=== PATIENT | male | born 1970 | race Two or more races ===

== ENCOUNTER 2016-08-14 21:05 | Emergency (ER) | payer SELFPAY ==
[2016-08-14 21:17] VITALS: BP 141/83
--- NOTE | 2016-08-14 23:11 | PHYS DOC ---
Past Medical History Past Medical History: No Pertinent History Past Surgical History: No Surgical History Alcohol Use: Occasionally Drug Use: None Adult General Chief Complaint Chief Complaint: LACERATION/AVULSION HPI HPI Patient is a 46 year old male states that he was working on the roof when he was cut with a piece of sheet metal on the left forearm. He has a laceration noted on his left forearm that is approximately 1 cm in length. Bleeding is currently controlled. Patient states his last tetanus shot was in March. Patient has full range of motion of his lower extremity. He denies any injuries other than the laceration. Review of Systems Review of Systems Constitutional: Denies fever or chills [] Eyes: Denies change in visual acuity, redness, or eye pain [] HENT: Denies nasal congestion or sore throat [] Respiratory: Denies cough or shortness of breath [] Cardiovascular: No additional information not addressed in HPI [] GI: Denies abdominal pain, nausea, vomiting, bloody stools or diarrhea [] : Denies dysuria or hematuria [] Musculoskeletal: Denies back pain or joint pain [] Integument: Denies rash or skin lesions. Laceration left forearm Neurologic: Denies headache, focal weakness or sensory changes [] Current Medications Current Medications Current Medications Medications (Trade) Dose Ordered Sig/Filomena Start Time Stop Time Status Last Admin Dose Admin Lidocaine/Sodium Bicarbonate (Buffered Lidocaine 1%) 20 ml 1X ONCE 08/14/16 23:30 08/14/16 23:31 DC 08/14/16 23:30 20 ML Allergies Allergies Allergies Coded Allergies Type Severity Reaction Last Updated Verified No Known Drug Allergies 04/19/16 No Physical Exam Physical Exam Constitutional: Well developed, well nourished, no acute distress, non-toxic appearance. [] HENT: Normocephalic, atraumatic, bilateral external ears normal, oropharynx moist, no oral exudates, nose normal. [] Eyes: PERRLA, EOMI, conjunctiva normal, no discharge. [] Neck: Normal range of motion, no tenderness, supple, no stridor. [] Cardiovascular:Heart rate regular rhythm Lungs & Thorax: No respiratory distress noted Skin: Warm, dry, no erythema, no rash. [] Back: No tenderness Extremities: No tenderness, no cyanosis, no clubbing, ROM intact, no edema. [] Neurologic: Alert and oriented X 3, normal motor function, normal sensory function, no focal deficits noted. [] Psychologic: Affect normal, judgement normal, mood normal. [] Current Patient Data Vital Signs Vital Signs Date Time Temp Pulse Resp B/P Pulse Ox O2 Delivery O2 Flow Rate FiO2 08/14/16 21:17 98.4 77 20 97 Room Air 98.4 EKG EKG [] Radiology/Procedures Radiology/Procedures [] Course & Med Decision Making Course & Med Decision Making Pertinent Labs and Imaging studies reviewed. (See chart for details) Patient was provided with discharge instructions, treatment regimens and follow- up recommendations. Patient was instructed to keep the area clean and dry and to apply antibiotic to the ointment twice a day. Also recommended Keflex to prevent infection as this area has been open for over 6 hours. Tylenol or ibuprofen for pain and discomfort. Ice packs on 20 minutes off 20 minutes several times a day. Patient agrees with discharge instructions treatment regimens and follow-up recommendations. His recommended follow-up in 7-10 days for suture removal. [] Dragon Disclaimer Dragon Disclaimer This electronic medical record was generated, in whole or in part, using a voice recognition dictation system. Departure Departure Impression: Primary Impression: Laceration of left forearm Disposition: HOME, SELF-CARE Condition: STABLE Referrals: NO PCP (PCP) Patient Instructions: Laceration Care, Adult, Sutured Wound Care, [id number] Additional Instructions: You've had sutures placed to your left forearm for an injury at home. Tylenol or ibuprofen for pain and discomfort. Ice packs on day. Elevation as much as possible. Keep the area clean and dry. Clean the site with soap and water and apply antibiotic ointment to the area twice a day. Medications as prescribed. Watch for signs and symptoms of infection: Redness, warmth, tenderness or any yellow/greenish drainage of a come from the site. Physician occur you need to follow-up to primary care physician immediately. Follow-up with her primary care physician in the next 7-10 days to have the sutures removed. Return back to emergency prior signs symptoms of become worse. Scripts Cephalexin (Keflex)500 Mg Capsule1 Cap PO BID #20 CAP Prov:ALISSONDORINA M [employer] 08/14/16 Laceration/Wound Repair Laceration/Wound Repair : Wound Location: upper extremity Wound's Depth, Shape: superficial Wound Length (cm): 1 Wound Explored: clean Irrigated w/ Saline (ccs): 200 Betadine Prep?: Yes Anesthesia: 1% Lidocaine Volume Anesthetic (ccs): 6 Wound Debrided: minimal Wound Repaired With: sutures Suture Size/Type: 3:0 Number of Sutures: 7 Progress It was irrigated with normal saline 200 mL. 1% lidocaine was used to inject the area with approximately 6 mL. Site was cleaned with Betadine no nylon used to suture the area with approximately 7 sutures placed. Patient tolerated the procedure well. DORINA VINSON APRN Aug 14, 2016 23:11
[2016-08-14] MEDS ORDERED: CEPH-264 PO (23:18)
[2016-08-14] MEDS ORDERED: LIDOCAINE 1% / SOD BICARB 8.4% 20 ML VIAL. IJ ONE (23:30)
== END 2016-08-15 00:02 | disposition home or self-care (01) ==
LOC: ER 21:05
DX: S51.812A Laceration without foreign body of left forearm, initial encounter (principal); W45.8XXA Other foreign body or object entering through skin, initial encounter; Y93.89 Activity, other specified; Y92.89 Other specified places as the place of occurrence of the external cause; Y99.8 Other external cause status
CPT/HCPCS: 12001; 99283-25

== ENCOUNTER 2019-11-02 17:22 | Emergency (ER) | payer OTHER ==
[~2019-11-02] VITALS: Ht 165.1 cm; Wt 72.0 kg
[~2019-11-02 17:22] MED LIST: CEPH-264 PO
[2019-11-02 17:46] VITALS: BP 126/74
--- NOTE | 2019-11-02 18:31 | PHYS DOC ---
Past Medical History Past Medical History: No Pertinent History Past Surgical History: No Surgical History Smoking Status: Never Smoker Alcohol Use: None Drug Use: None General Adult EDM: Chief Complaint: EARACHE/EAR PAIN HPI: HPI: Patient is a 49 year old male who presents to the emergency department with complaints of left ear pain. Patient states he has been trying to irrigate wax out of his ears. He denies any bleeding, or drainage from his left ear. He denies any fever, decreased hearing, sore throat, nausea, vomiting, dizziness, syncope, or headache. He currently rates his pain a 7 out of 10 on the pain scale; he denies any alleviating or exacerbating factors, he denies radiation of the pain. Review of Systems: Review of Systems: Constitutional: Denies fever or chills. [] HENT: Denies nasal congestion or sore throat; see HPI [] Respiratory: Denies cough or shortness of breath. [] GI: Denies abdominal pain, nausea, or vomiting : Denies dysuria. [] Musculoskeletal: Denies back pain or joint pain. [] Integument: Denies rash. [] Neurologic: Denies headache, focal weakness or sensory changes. [] Endocrine: Denies polyuria or polydipsia. [] Lymphatic: Denies swollen glands. [] Psychiatric: Denies depression or anxiety. [] Heart Score: Risk Factors: Risk Factors: DM, Current or recent (<one month) smoker, HTN, HLP, family history of CAD, obesity. Risk Scores: Score 0 - 3: 2.5% MACE over next 6 weeks - Discharge Home Score 4 - 6: 20.3% MACE over next 6 weeks - Admit for Clinical Observation Score 7 - 10: 72.7% MACE over next 6 weeks - Early Invasive Strategies Allergies: Allergies: Allergies Coded Allergies Type Severity Reaction Last Updated Verified No Known Drug Allergies 04/19/16 No Physical Exam: PE: Constitutional: Well developed, well nourished, no acute distress, non-toxic appearance. [] HENT: Normocephalic, atraumatic, unable to visualize bilateral TMs due to wax debris, no tenderness to palpation of left mastoid, erythema of the left ear can al consistent with otitis externa present, nose normal. [] Eyes: PERRLA, EOMI, conjunctiva normal, no discharge. [] Neck: Normal range of motion, no stridor. [] Cardiovascular:Heart rate regular rhythm Lungs & Thorax: Respirations even and unlabored, no retractions, no respiratory distress Skin: Warm, dry, no erythema, no rash. [] Extremities: No cyanosis, ROM intact, no edema. [] Neurologic: Alert and oriented X 3, no focal deficits noted. [] Psychologic: Affect normal, judgement normal, mood normal. [] Current Patient Data: Vital Signs: Vital Signs Date Time Temp Pulse Resp B/P (MAP) Pulse Ox O2 Delivery O2 Flow Rate FiO2 11/02/19 17:46 98.4 75 16 126/74 (91) 96 Room Air 98.4 EKG: EKG: [] Radiology/Procedures: Radiology/Procedures: [] Course & Med Decision Making: Course & Med Decision Making Pertinent Labs and Imaging studies reviewed. (See chart for details) [] Dragon Disclaimer: Dragon Disclaimer: This electronic medical record was generated, in whole or in part, using a voice recognition dictation system. Departure Departure Impression: Primary Impression: Left otitis externa Qualified Codes: H60.502 - Unspecified acute noninfective otitis externa, left ear Additional Impression: Bilateral impacted cerumen Disposition: HOME, SELF-CARE Condition: STABLE Referrals: NO PCP (PCP) Patient Instructions: Cerumen Impaction, Otitis Externa, [id number] Additional Instructions: Fill the prescription and use it as directed. Follow-up with your primary care doctor for reevaluation next week. Return to the ER if symptoms worsen. Scripts Neomycin/Polymyxin B Sulf/Hc (BULDYTRK-ZMUTEVICA-RS EAR SUSP) 10 Ml Drops.susp 4 DROP LEFT EAR TID for 5 Days, #10 ML 0 Refills Prov: LEONARD ALANIZ [employer]SULTANT 11/02/19 Justicifation of Admission Dx: Justifications for Admission: Justification of Admission Dx: N/A LEONARD ALANIZ [employer] SAL[employer] CONSULTANT Nov 02, 2019 18:31
[2019-11-02] MEDS ORDERED: NEOM10DR32 LEFT EAR (18:54)
== END 2019-11-02 19:33 | disposition home or self-care (01) ==
LOC: ER 17:22
DX: H60.502 Unspecified acute noninfective otitis externa, left ear (principal); H61.23 Impacted cerumen, bilateral
CPT/HCPCS: 99283